=== PATIENT | female | born 1955 | race Caucasian/White ===

== ENCOUNTER 2019-01-20 11:09 | Emergency (ER) | payer BC ==
[~2019-01-20] VITALS: Ht 160 cm; Wt 65.9 kg
[~2019-01-20 11:09] MED LIST: HYDROCORTISO2.51 EX; LOVASTATIN20 M1 PO; SERTRALINE HCL50 MG PO; WELLBUTRIN150 M1 PO
[2019-01-20] MEDS ORDERED: PREDNISONE50 MG PO (12:16)
[2019-01-20 12:57] VITALS: BP 161/67
== END 2019-01-20 12:59 | disposition home or self-care (01) | DRG 607 ==
LOC: ED 11:09
DX: L50.9 Urticaria, unspecified (principal); F17.210 Nicotine dependence, cigarettes, uncomplicated